=== PATIENT | female | born 1985 | race Caucasian/White ===

== ENCOUNTER → 2016-05-24 | Outpatient (CLI) | payer OTHER ==
[~2016-05-24] MED LIST: GADOBUTROL 10 ML VIAL IVP ONE
== END ==
LOC: FIMAGING 12:43
PROVIDERS: ATTEND Physician Assistant Medical
DX: R20.2 Paresthesia of skin (principal); R20.0 Anesthesia of skin; R42 Dizziness and giddiness
CPT/HCPCS: A9585